=== PATIENT | female | born 1985 | race Caucasian/White ===

== ENCOUNTER 2020-11-04 15:11 | Outpatient (CLI) | payer OTHER, SELFPAY ==
--- NOTE | ~2020-11-04 | XR_ITS ---
EXAMINATION: XR chest 2V DATE: 11/04/2020 15:32 INDICATION: Contact with and (suspected) exposure to COVID 19 TECHNIQUE: PA and lateral views of the chest were obtained. COMPARISON: Chest radiograph dated 04/04/2016 FINDINGS: The lungs remain clear with no focal airspace opacities, pulmonary edema, pleural effusion or pneumot horax. The cardiomediastinal silhouette is normal. Visualized bones and soft tissues are unremarkable . IMPRESSION: 1. Normal chest radiograph. Reviewed, dictated and finalized at location B. IMPRESSION: 1. Normal chest radiograph.
== END 2020-11-04 15:12 | disposition home or self-care (01) ==
PROVIDERS: PCP Family Medicine; Visit Provider Physician Assistant
DX: R68.89 Other general symptoms and signs (principal); Z20.822 Contact with and (suspected) exposure to COVID-19
CPT/HCPCS: 71046

== ENCOUNTER 2020-11-07 08:55 | Emergency (ER) | payer OTHER, SELFPAY ==
--- NOTE | ~2020-11-07 | XR_ITS ---
EXAMINATION: XR chest 1V portable 11/07/2020 09:42 INDICATION: Weakness. Covid positive. PROCEDURE: AP portable chest COMPARISON: Comparison to multiple prior studies sequentially, with oldest reviewed study dated 04/04. FINDINGS: The lungs are clear. The cardiomediastinal silhouette is within normal limits. There are no pleural effusions. There is no pneumothorax suspected. IMPRESSION: 1: NO ACUTE CARDIOPULMONARY DISEASE. Reviewed, dictated and finalized at location A.
[2020-11-07 09:01] VITALS: BP 111/74; PULSE 89; RESP 17; O2SAT 100
--- NOTE | 2020-11-07 09:06 | ECG_ITS ---
Measurements Intervals [place] Rate: 63 P: 54 CT: 160 QRS: 65 QRSD: 90 T: 40 QT: 387 QTc: 396 Interpretive Statements SINUS RHYTHM NONSPECIFIC T-WAVE ABNORMALITY- ANTERIOR LEADS BASELINE ARTIFACT- III, AVL, AVF, V4 BORDERLINE ECG Electronically Signed On 11-07-2020 12:16:31 CDT by Fidencio Veliz D.O.
[2020-11-07 09:14] VITALS: PULSE 82; RESP 14; O2SAT 100
[2020-11-07 09:15] VITALS: PULSE 75; RESP 13; O2SAT 100
[2020-11-07 09:16] VITALS: BP 110/83; PULSE 85; RESP 15
--- NOTE | 2020-11-07 09:35 | ED.GENADULT ---
HPI - General Adult General Chief complaint: Weakness Stated complaint: weakness Time Seen by Provider: 11/07/20 09:02 Source: patient History of Present Illness HPI narrative: Patient is a 35 y/o female complaining of moderate generalized weakness for several days. There is no alleviating or exacerbating factor. She states that she tested positive for COVID on 10/21/20. She still has some cough and feels like she can't catch a deep breath. Related Data Home Medications Medication Instructions Recorded Confirmed alprazolam 0.25 mg tablet 0.25 mg PO DAILY PRN 11/04/20 11/04/20 Allergies Allergy/AdvReac Type Severity Reaction Status Date / Time metoclopramide Allergy Mild ANXIETY Verified 11/07/20 09:08 Review of Systems Constitutional: Constitutional: Denies chills, Denies fever(s), Denies headache(s) and Reports weakness Eyes: Eyes: Denies blurry vision ENT: Denies headache(s) and Denies neck pain Cardiovascular: Cardiovascular: Denies chest pain and Denies dyspnea Respiratory: Respiratory: Reports cough and Denies dyspnea Gastrointestinal: Gastrointestinal: Denies abdominal pain, Denies diarrhea, Denies nausea and Denies vomiting Genitourinary: Genitourinary: Denies hematuria and Denies dysuria Musculoskeletal: Musculoskeletal: Denies back pain and Denies neck pain Neurologic: Denies headache(s) and Reports weakness PMFSH Past Medical History Medical History Anxiety Family History Family History Father Hypertension Family history of elevated blood lipids Family history of diabetes mellitus in first degree relative Grandparent Family history of coronary artery disease Mother Rheumatoid arthritis Social History Social History Smoking status: Never smoker Second hand tobacco smoke exposure: No Alcohol intake: never Substance use: never Substance use type: does not use Gender identity (if verbalized by the patient): Female Exam Const: General: no acute distress and well developed Orientation/consciousness: oriented to person, oriented to place, oriented to time and patient oriented x3 HENMT: Head: normocephalic Ears: external ears normal General nose exam: Normal external nose present Eyes: General: appearance normal, both eyes and all related structures Conjunctivae: conjunctivae normal Neck: Neck: normal visual inspection and full ROM Chest: Chest palpation & inspection: normal inspection of the chest and no tenderness Resp: Effort & Inspection: normal respiratory effort Auscultation: clear to auscultation bilaterally Cardio: Rate: regular rate Rhythm: regular rhythm GI: GI Palp: No abdominal tenderness and Yes Soft to palpation Skin: General skin exam: normal color and turgor normal Neuro: General: oriented to person, oriented to place, oriented to time and patient oriented x3 Cranial nerves: Yes CN's II-XII intact bilaterally Cognition (Neuro): normal cognition Speech: normal speech Motor exam (neuro): 5/5 motor strength present throughout Sensory Exam: normal sensation Coordination: [id number] test normal and [id number] test normal Extrem: General: normal to inspection, full ROM and no pedal edema Psych: Appearance: grossly normal Mental Status: mental status grossly normal Affect: normal affect Course Vital Signs Vital signs: Vital Signs Pulse Rate 89 11/07/20 09:01 Respiratory Rate 17 11/07/20 09:01 Blood Pressure 111/74 11/07/20 09:01 Pulse Oximetry 100 11/07/20 09:01 Pulse Rate 71 11/07/20 11:40 Respiratory Rate 16 11/07/20 11:40 Blood Pressure 117/74 11/07/20 11:41 Pulse Oximetry 100 11/07/20 09:15 Medical Decision Making Vital Signs Vital Signs: Vital Signs Pulse Rate 89 11/07/20 09:01 Respiratory Rate 17 11/07/20 09:01 Blood Pressure
[2020-11-07 09:43] LABS: Basophils Percent Auto 0.2 % (0.2-1.2); Eosinophils Percent Auto 0.1 % (0-4.4); Hematocrit 35.6 % (37.0-47.0); Hemoglobin 11.7 g/dL (12.0-15.0); Immature Granulocyte Absolute 0.02 K/mm3 (0.00-0.031); Immature Granulocyte Percent A 0.2 % (0-0.5); Lymphocytes Absolute Auto 2.25 K/mm3 (0.9-3.2); Lymphocytes Percent Auto 27.6 % (18.3-44.2); Mean Corpuscular HGB Conc 32.9 g/dl (32-36); Mean Corpuscular Hemoglobin 29.5 pg (26-34); Mean Corpuscular Volume 89.7 fl (80-100); Mean Platelet Volume 11.6 fl (7.4-10.4); Monocytes Absolute Auto 0.8 K/mm3 (0.1-0.6); Monocytes Percent Auto 9.8 % (2.6-8.5); Neutrophils Absolute Auto 5.1 K/mm3 (1.3-6.7); Neutrophils Percent Auto 62.1 % (45.5-73.1); Platelet Count Result 224 k/mm3 (150-375); Red Blood Count 3.97 M/mm3 (4.2-5.4); Red Cell Distribution Width 12.6 % (11.5-14.5); White Blood Count 8.2 K/mm3 (4.5-10.0)
[2020-11-07 09:54] LABS: Alanine Aminotransferase 12 U/L (4-35); Albumin Level 4.6 g/dL (3.5-5.1); Alkaline Phosphatase 62 U/L (38-126); Anion Gap 8 mmol/L (8-16); Aspartate Amino Transferase 20 U/L (14-36); Bilirubin,Total 0.7 mg/dL (0.2-1.3); Blood Urea Nitrogen 20 mg/dL (7-17); Calcium 10.2 mg/dL (8.4-10.2); Carbon Dioxide 26 mmol/L (22-30); Chloride 107 mmol/L (98-107); Estimated CRCL calculation 90 ml/min; Estimated Glomerular Filt Rate > 60; Glucose 89 mg/dL (65-105); Potassium 3.1 mmol/L (3.4-5.0); Sodium 141 mmol/L (137-145)
[2020-11-07] MEDS: SODIUM CHLORIDE 0.9% IV 1,000 ML 999 ML IV CONT (10:01)
[2020-11-07 10:06] LABS: Troponin I < 0.012 ng/mL (0.000-0.034)
[2020-11-07 10:15] LABS: Add Urine Microscopic? YES; Appearance Urine Cloudy (Clear); Bacteria Urine 2+ /hpf; Bilirubin Urine Negative (Negative); Blood Urine 3+ (Negative); Color Urine Yellow (Yellow); Glucose Urine UA Negative (Negative); Ketones Urine 2+ mg/dL (Negative); Leukocyte Esterase Ur 3+ LEU/UL (Negative); Mucus Urine Heavy /lpf; Nitrate Urine Negative (Negative); Protein Urine 2+ mg/dL (Negative); RBC Urine >75 /hpf (0-2); Squamous Epithelial Cell Urine Many /hpf (Few); Urobilinogen Urine Negative mg/dL (<2.0); WBC Urine 31-50 /hpf
[2020-11-07 11:40] VITALS: BP 117/74; PULSE 71; RESP 16
[2020-11-07] MEDS: POTASSIUM CHLORIDE 20 MEQ TABLET PO (11:40)
[2020-11-07 11:41] VITALS: BP 117/74
[2020-11-07 12:07] LABS: Troponin I < 0.012 ng/mL (0.000-0.034)
== END 2020-11-07 11:40 | disposition home or self-care (01) ==
PROVIDERS: Emergency Provider Emergency Medicine; PCP Family Medicine
DX: N39.0 Urinary tract infection, site not specified (principal); E86.0 Dehydration; E87.6 Hypokalemia; Z86.16 Personal history of COVID-19; F41.9 Anxiety disorder, unspecified; R94.31 Abnormal electrocardiogram [ECG] [EKG]
CPT/HCPCS: 36415; 71045; 80053; 81001; 84484; 85025; 87086; 87088; 93005; 96360; 99284; A9270; J7030

== ENCOUNTER 2024-02-27 18:10 | Emergency (ER) | payer BC, SELFPAY ==
[2024-02-27 18:18] VITALS: BP 115/73; PULSE 87; RESP 16; TEMP 36.7; O2SAT 100
--- NOTE | 2024-02-27 18:30 | ED.SKABFB ---
HPI - Skin/Abscess/Foreign Bdy General Chief complaint: Skin/Abscess/Foreign Body Stated complaint: Poss shingles left side Time Seen by Provider: 02/27/24 18:24 Source: patient and RN notes reviewed Mode of arrival: ambulatory Limitations: no limitations History of Present Illness HPI narrative: Patient presents today with a burning and stinging rash to her left lateral flank x2 hours. Believe she may have shingles. No [id number] treatment prior to arrival. She has had shingles 1 other time in the past. Related Data Allergies Allergy/AdvReac Type Severity Reaction Status Date / Time metoclopramide Allergy Mild ANXIETY Verified 11/07/20 09:08 Review of Systems Review of Systems: CONSTITUTIONAL: Denies body aches, fever, chills, or sweats. EYES: Denies visual changes, redness, or discharge. ENT: Denies rhinorrhea, congestion, sore throat, or otalgia. CARDIOVASCULAR: Denies chest pain, palpitations, or edema. RESPIRATORY: Denies cough or dyspnea. GASTROINTESTINAL: Denies abdominal pain, nausea, vomiting, or diarrhea. GENITOURINARY: Denies dysuria or hematuria. SKIN: + rash MUSCULOSKELETAL: Denies back pain, joint pain, or myalgia. NEUROLOGIC: Denies headache, numbness, tingling, or weakness. PSYCH: Denies depression or anxiety. [facility] Past Medical History Medical History Anxiety Family History Family History Father Hypertension Family history of elevated blood lipids Family history of diabetes mellitus in first degree relative Grandparent Family history of coronary artery disease Mother Rheumatoid arthritis Social History Social History Smoking status: Never smoker Second hand tobacco smoke exposure: No Alcohol intake: never Substance use: never Substance use type: does not use Living arrangements: with family Occupation/Education: occupation Gender identity (if verbalized by the patient): Female Comments At time of signature, I have reviewed and agree with nursing past medical, surgical, social and family history unless otherwise noted. Please see nursing chart for further information. There is no relevant family history pertinent to the presenting complaint Exam Narrative: GENERAL: Well-appearing, well-nourished, and in no acute distress. HEAD: Normocephalic, atraumatic. EYES: EOMI. No redness or drainage. Conjunctivae normal. ENT: Mucous membranes pink and moist. NECK: Normal AROM. CHEST: No respiratory distress. EXTREMITIES: Normal range of motion. No edema. SKIN: Warm, dry. Capillary refill normal. Normal skin turgor. Small area of tiny erythematous vesicles to the left lateral flank measuring approx 3x2 cm. NEURO: No focal deficits. Alert and oriented x3. Gait steady. PSYCH: Normal affect. No signs of depression or anxiety. Course Course Level of Care: Express Care Visit Vital Signs Vital signs: Vital Signs Temperature 98.1 F 02/27/24 18:18 Pulse Rate 87 02/27/24 18:18 Respiratory Rate 16 02/27/24 18:18 Blood Pressure 115/73 02/27/24 18:18 Pulse Oximetry 100 02/27/24 18:18 Oxygen Delivery Room Air 02/27/24 18:18 Temperature 98.1 F 02/27/24 18:18 Pulse Rate 87 02/27/24 18:18 Respiratory Rate 16 02/27/24 18:18 Blood Pressure 115/73 02/27/24 18:18 Pulse Oximetry 100 02/27/24 18:18 Oxygen Delivery Room Air 02/27/24 18:18 Reviewed MDM - Skin/Abscess/Foreign Bdy MDM Narrative Medical decision making narrative: Exam is consistent with shingles. Will treat with Valtrex. Anticipatory guidance given. Differential Diagnosis Differential diagnosis: Likely viral exanthem, urticaria, herpes zoster, cellulitis, eczema, insect bites, impetigo and contact dermatitis Critical Care Time Critical Care Time Critical Care Time: No
== END 2024-02-27 18:40 | disposition home or self-care (01) ==
PROVIDERS: Emergency Provider Nurse Practitioner; PCP Family Medicine
DX: B02.9 Zoster without complications (principal)
CPT/HCPCS: 99203; G0463